=== PATIENT | male | born 1990 | race African-American/Black ===

== ENCOUNTER 2021-04-17 11:14 | Inpatient (IN) | payer MEDICAID ==
[~2021-04-17] VITALS: Ht 188 cm; Wt 87.3 kg
[2021-04-17] MEDS: normal saline 1000ml 1,000 ML IV SCH ×2 (04:00→15:25)
[2021-04-17] MEDS ORDERED: piperacillin/tazo 3.375gm/50ml 50 ML IV STA (12:13)
[2021-04-17] MEDS ORDERED: normal saline 1000ML IV soln IVB ONE (12:15)
[2021-04-17] MEDS ORDERED: NO HOME MEDS (12:29)
[2021-04-17 12:35] LABS: ALANINE AMINOTRANSFERASE 38 U/L (12-78); ALBUMIN 3.1 G/DL (3.4-5.0); ALBUMIN/GLOBULIN RATIO 0.8 (1.1-1.5); ALKALINE PHOSPHATASE 112 IU/L (46-116); ANION GAP 8 (8-16); ASPARTATE AMINO TRANSFERASE 21 U/L (10-37); BILIRUBIN,TOTAL 1.4 MG/DL (0.1-1.0); BLOOD UREA NITROGEN 8 MG/DL (7-18); BUN/CREATININE RATIO 7.1 (5.4-32.0); CALCIUM 8.6 MG/DL (8.5-10.1); CHLORIDE 106 MMOL/L (99-107); CREATININE 1.12 MG/DL (0.60-1.10); GLUCOSE 86 MG/DL (70-104); SODIUM 141 MMOL/L (135-145); TOTAL CARBON DIOXIDE 26.9 MMOL/L (24-32); TOTAL PROTEIN 6.9 G/DL (6.4-8.2); eGFR 78 ML/MIN
[2021-04-17 12:40] LABS: BASOPHILS # (AUTO) 0.1 X10'3 (0-0.2); BASOPHILS % (AUTO) 0.4 % (0-1); EOSINOPHILS # (AUTO) 0.2 X10'3 (0-0.9); EOSINOPHILS % (AUTO) 1.7 % (0-6); HEMOGLOBIN 13.4 g/dl (14.0-17.9); LYMPHOCYTES # (AUTO) 1.3 X10'3 (1.1-4.8); LYMPHOCYTES % (AUTO) 8.9 % (21-51); MEAN CORPUSCULAR HEMOGLOBIN 29.3 PG (27.0-31.0); MEAN CORPUSCULAR HGB CONC 32.7 g/dL (33.0-36.5); MEAN CORPUSCULAR VOLUME 89.7 FL (78-98); MEAN PLATELET VOLUME 9.3 FL (7.4-10.4); MONOCYTES # (AUTO) 1.4 X10'3 (0-0.9); MONOCYTES % (AUTO) 9.9 % (2-12); NEUTROPHILS # (AUTO) 11.5 X10'3 (1.8-7.7); NEUTROPHILS % (AUTO) 79.1 % (42-75); PLATELET COUNT 209 X10'3 (140-440); RED BLOOD COUNT 4.57 X10'6 (4.70-6.10); RED CELL DISTRIBUTION WIDTH 13.5 % (11.5-14.5); WHITE BLOOD COUNT 14.6 X10'3 (4.5-11.0)
--- NOTE | 2021-04-17 13:03 | NUR ---
RELIEVING RN FOR LUNCH, PT IS RESTING QUIETLY ON GURNEY, RESP EVEN AND UNLABORED, 1ST LITER NS INFUSING W/O
[2021-04-17] MEDS ORDERED: acetaminophen 325mg tablet PO PRN ×2 (13:20)
[2021-04-17] MEDS ORDERED: magnesium 2GM in 50ml NS 50 ML IV PRN (13:20)
[2021-04-17] MEDS ORDERED: potassium Cl 40MEQ/1/2NS 520ml 520 ML IV PRN ×2 (13:20)
[2021-04-17] MEDS ORDERED: ondansetron/PF 4mg/2ml inj IV PRN (13:20)
[2021-04-17] MEDS ORDERED: potassium Cl 20 mEq SR tablet PO PRN ×2 (13:20)
[2021-04-17] MEDS ORDERED: magnesium hydroxide 30ml (MOM) UD suspension PO PRN (13:20)
[2021-04-17] MEDS ORDERED: magnesium 4gm in 100ml NS 100 ML IV PRN (13:20)
[2021-04-17] MEDS ORDERED: HYDROcodone/acetaminophen 10/325mg tab PO PRN (13:20)
[2021-04-17] MEDS ORDERED: HYDROcodone/acetaminophen 5mg/325mg tablet PO PRN (13:20)
[2021-04-17] MEDS ORDERED: mag hydrox/Alum hydrox/simeth 30ml oral suspension PO PRN (13:20)
[2021-04-17] MEDS ORDERED: SINCALIDE IV ONE (13:50)
[2021-04-17] MEDS ORDERED: NORMAL SALINE IV ONE (13:50)
--- NOTE | 2021-04-17 15:09 | NUR ---
PT TO HAVE SCAN IN AM, NO NARCOTICS OR FOOD AFTER MIDNIGHT PER NUCLEAR MED
[2021-04-17 15:13] LABS: LIPASE < 50 U/L (73-393)
[2021-04-17] MEDS: piperacillin/tazo 4.5gm/100ml 100 ML IV SCH ×2 (16:00→23:39)
[2021-04-17] MEDS: pantoprazole 40MG/NS 100ML BAG 100 ML IV SCH ×2 (18:44→21:00)
--- NOTE | 2021-04-17 19:37 | NUR ---
SOCORRO DICK FOR [facility] PROTOCOL FOR ETOH; INITIAL ASSESSMENT OF PT HE HAS VERY TREMOROUS HANDS AND BARELY ABLE TO EAT DUE TO SHAKES; SWEATS; DENIES N/V/SCHMIDT.
[2021-04-17] MEDS: K and/or MAG REPLACEMENT MC SCH (20:00)
[2021-04-17] MEDS: docusate sod 100mg capsule PO SCH (20:00)
--- NOTE | 2021-04-17 20:45 | NUR ---
PT ARRIVED FROM [place], PT IS STABLE WITH ONLY MINOR PAIN. PLAN FOR HIDA SCAN & POSSIBLY AN EGD IN AM. POSSIBLE CHOLECYSTECTOMY FOLLOWING PREVIOUS TESTS.
[2021-04-17 20:55] VITALS: BP 154/91
[2021-04-17 21:00] VITALS: BP 154/91
[2021-04-18] VITALS (11 sets, daily range): BP systolic 108–153; BP diastolic 52–94
[2021-04-18] MEDS: pantoprazole 40MG/NS 100ML BAG 100 ML IV SCH ×5 (01:00→21:47)
[2021-04-18 06:29] LABS: BASOPHILS % (AUTO) 0.4 % (0-1); EOSINOPHILS # (AUTO) 0.3 X10'3 (0-0.9); EOSINOPHILS % (AUTO) 3.2 % (0-6); HEMATOCRIT 38.3 % (42.0-52.0); HEMOGLOBIN 12.4 g/dl (14.0-17.9); LYMPHOCYTES # (AUTO) 1.1 X10'3 (1.1-4.8); LYMPHOCYTES % (AUTO) 10.5 % (21-51); MEAN CORPUSCULAR HEMOGLOBIN 29.2 PG (27.0-31.0); MEAN CORPUSCULAR HGB CONC 32.4 g/dL (33.0-36.5); MEAN CORPUSCULAR VOLUME 90.1 FL (78-98); MEAN PLATELET VOLUME 9.3 FL (7.4-10.4); MONOCYTES % (AUTO) 9.4 % (2-12); NEUTROPHILS # (AUTO) 8.2 X10'3 (1.8-7.7); NEUTROPHILS % (AUTO) 76.5 % (42-75); PLATELET COUNT 209 X10'3 (140-440); RED BLOOD COUNT 4.25 X10'6 (4.70-6.10); RED CELL DISTRIBUTION WIDTH 13.4 % (11.5-14.5); WHITE BLOOD COUNT 10.7 X10'3 (4.5-11.0)
[2021-04-18 06:55] LABS: ALANINE AMINOTRANSFERASE 25 U/L (12-78); ALBUMIN 2.7 G/DL (3.4-5.0); ALBUMIN/GLOBULIN RATIO 0.8 (1.1-1.5); ALKALINE PHOSPHATASE 92 IU/L (46-116); ANION GAP 11 (8-16); ASPARTATE AMINO TRANSFERASE 14 U/L (10-37); BILIRUBIN,TOTAL 1.2 MG/DL (0.1-1.0); BLOOD UREA NITROGEN 7 MG/DL (7-18); BUN/CREATININE RATIO 6.3 (5.4-32.0); CALCIUM 8.1 MG/DL (8.5-10.1); CHLORIDE 108 MMOL/L (99-107); CREATININE 1.11 MG/DL (0.60-1.10); GLUCOSE 87 MG/DL (70-104); MAGNESIUM 1.9 MG/DL (1.5-2.4); POTASSIUM 3.7 MMOL/L (3.5-5.1); SODIUM 144 MMOL/L (135-145); TOTAL CARBON DIOXIDE 25.1 MMOL/L (24-32); TOTAL PROTEIN 6.3 G/DL (6.4-8.2); eGFR > 90 ML/MIN
--- NOTE | 2021-04-18 07:06 | NUR ---
Problems reprioritized. Patient report given, questions answered & plan of care reviewed with GUILLERMO. Addendum: 04/18/21 at 0706 by Chuck Lopez RN Amended: Links added.
[2021-04-18] MEDS: docusate sod 100mg capsule PO SCH (08:00)
[2021-04-18] MEDS: K and/or MAG REPLACEMENT MC SCH ×2 (08:00→20:00)
[2021-04-18] MEDS: normal saline 1000ml 1,000 ML IV SCH (09:20)
[2021-04-18] MEDS ORDERED: fentaNYL/PF 50MCG/1 ML 2ML syringe ONE (10:06)
[2021-04-18] MEDS ORDERED: MIDAZolam 1 MG/ML 5ML VIAL ONE (10:07)
[2021-04-18] MEDS ORDERED: LIDOcaine Viscous 15ml cup ONE (10:08)
[2021-04-18] MEDS ORDERED: NORMAL SALINE IV ONE (12:25)
[2021-04-18] MEDS ORDERED: SINCALIDE IV ONE (12:25)
[2021-04-18] MEDS: sucralfate 1 gm tablet PO SCH (16:00)
--- NOTE | 2021-04-18 18:45 | NUR ---
Patient in room [id number]. I have received report from GUILLERMO KELLEY and had the opportunity to ask questions and assume patient care.
[2021-04-18] MEDS ORDERED: clarithromycin 250mg tablet PO SCH (20:00)
[2021-04-18] MEDS ORDERED: amoxicillin 250mg capsule PO SCH (20:00)
[2021-04-19] VITALS: BP 121/64
[2021-04-19] MEDS: sucralfate 1 gm tablet PO SCH ×4 (00:47→16:00)
[2021-04-19] MEDS: docusate sod 100mg capsule PO SCH ×2 (00:47→08:00)
[2021-04-19] MEDS: normal saline 1000ml 1,000 ML IV SCH ×3 (02:19→15:20)
[2021-04-19] MEDS: pantoprazole 40MG/NS 100ML BAG 100 ML IV SCH ×4 (02:33→16:00)
[2021-04-19 06:09] LABS: BASOPHILS % (AUTO) 0.3 % (0-1); EOSINOPHILS # (AUTO) 0.2 X10'3 (0-0.9); EOSINOPHILS % (AUTO) 2.7 % (0-6); HEMATOCRIT 38.2 % (42.0-52.0); HEMOGLOBIN 12.5 g/dl (14.0-17.9); LYMPHOCYTES # (AUTO) 1.2 X10'3 (1.1-4.8); LYMPHOCYTES % (AUTO) 13.1 % (21-51); MEAN CORPUSCULAR HEMOGLOBIN 29.3 PG (27.0-31.0); MEAN CORPUSCULAR HGB CONC 32.6 g/dL (33.0-36.5); MEAN CORPUSCULAR VOLUME 89.7 FL (78-98); MEAN PLATELET VOLUME 8.8 FL (7.4-10.4); MONOCYTES # (AUTO) 0.8 X10'3 (0-0.9); MONOCYTES % (AUTO) 8.2 % (2-12); NEUTROPHILS % (AUTO) 75.7 % (42-75); PLATELET COUNT 233 X10'3 (140-440); RED BLOOD COUNT 4.26 X10'6 (4.70-6.10); RED CELL DISTRIBUTION WIDTH 13.4 % (11.5-14.5); WHITE BLOOD COUNT 9.2 X10'3 (4.5-11.0)
[2021-04-19 06:25] LABS: ALANINE AMINOTRANSFERASE 23 U/L (12-78); ALBUMIN 2.6 G/DL (3.4-5.0); ALBUMIN/GLOBULIN RATIO 0.7 (1.1-1.5); ALKALINE PHOSPHATASE 85 IU/L (46-116); ANION GAP 10 (8-16); ASPARTATE AMINO TRANSFERASE 17 U/L (10-37); BILIRUBIN,TOTAL 0.9 MG/DL (0.1-1.0); BLOOD UREA NITROGEN 8 MG/DL (7-18); BUN/CREATININE RATIO 7.3 (5.4-32.0); CALCIUM 8.1 MG/DL (8.5-10.1); CHLORIDE 108 MMOL/L (99-107); GLUCOSE 69 MG/DL (70-104); MAGNESIUM 1.6 MG/DL (1.5-2.4); POTASSIUM 3.8 MMOL/L (3.5-5.1); SODIUM 142 MMOL/L (135-145); TOTAL CARBON DIOXIDE 24.5 MMOL/L (24-32); TOTAL PROTEIN 6.4 G/DL (6.4-8.2); eGFR > 90 ML/MIN
[2021-04-19] MEDS: K and/or MAG REPLACEMENT MC SCH (08:00)
[2021-04-19] MEDS ORDERED: HYDR-3964 PO (09:10)
[2021-04-19] MEDS ORDERED: PANT-47 PO (09:10)
[2021-04-19] MEDS ORDERED: SUCR1TAB34 PO (09:10)
--- NOTE | 2021-04-19 11:44 | NUR ---
Spoke with MD this morning about patient and pt is possible release for today around 6 pm. Pt is tolerating clear liquids and meds well this shift.
--- NOTE | 2021-04-19 18:00 | NUR ---
IV Protonix complete at 1715. Pt IV removed and discharge packet reviewed with patient and mother. Pt discharged home at 1749.
== END 2021-04-19 18:10 | disposition home health service (06) | DRG 241 ==
LOC: ER 11:14 → ED HOLD 13:27 → SUR 3N 20:53
PROVIDERS: ADMIT Family Medicine; ATTEND Family Medicine
PROC: 0DB98ZX Excision of Duodenum, Via Natural or Artificial Opening Endoscopic, Diagnostic (ICD-10-PCS; principal; 2021-04-18)
PROC: 0DB68ZX Excision of Stomach, Via Natural or Artificial Opening Endoscopic, Diagnostic (ICD-10-PCS; 2021-04-18)
PROC: CF1C1ZZ Planar Nuclear Medicine Imaging of Hepatobiliary System, All using Technetium 99m (Tc-99m) (ICD-10-PCS; 2021-04-18)
DX: K25.9 Gastric ulcer, unspecified as acute or chronic, without hemorrhage or perforation (principal); D72.823 Leukemoid reaction; K26.9 Duodenal ulcer, unspecified as acute or chronic, without hemorrhage or perforation; F17.220 Nicotine dependence, chewing tobacco, uncomplicated; Z80.42 Family history of malignant neoplasm of prostate; Z80.7 Family history of other malignant neoplasms of lymphoid, hematopoietic and related tissues; Z82.49 Family history of ischemic heart disease and other diseases of the circulatory system
CPT/HCPCS: 36415; 43239; 78226; 78227; 80053; 83605; 83690; 83735; 84145; 85025; 87040; 87081; 96365; 96367; 99152; 99285; A4620; A9537; C9113; G0378; J2250; J2543; J2805; J3010; J7030; J7040